=== PATIENT | female | born 1955 | race Caucasian/White ===

== ENCOUNTER 2025-01-11 15:30 | Outpatient (RCR) | payer MEDICARE, SELFPAY | END 2025-05-11 23:59 | disposition home or self-care (01) | PROVIDERS: Visit Provider Family Medicine | DX: M18.12 Unilateral primary osteoarthritis of first carpometacarpal joint, left hand (principal); G56.02 Carpal tunnel syndrome, left upper limb; Z51.89 Encounter for other specified aftercare | CPT/HCPCS: 97035; 97110; 97140; 97166; X5282 ==